=== PATIENT | female | born 1995 | race Caucasian/White ===

== ENCOUNTER 2019-04-25 16:14 | Emergency (ER) | payer BC ==
--- NOTE | 2019-04-25 17:32 | ER Document Report ---
ED Medical Screen (RME) - General Chief Complaint: OB Problem (<20wks) Stated Complaint: VAGINAL BLEEDING Time Seen by Provider: 04/25/19 17:31 Mode of Arrival: Ambulatory Information source: Patient Notes: Patient is a 23-year-old female who presents to the ER today approximately 12 weeks for vaginal bleeding that started about 1 PM today. Patient states she has passed 2 small clots, less than the size of a quarter. She states her last ended in miscarriage at about 5 weeks. She admits to lower abdominal cramping. Patient knows her blood type, O+. - Related Data Allergies/Adverse Reactions: No Known Allergies Allergy (Verified 04/25/19 16:15) Past Medical History - General Information source: Patient Review of Systems - Review of Systems Female Genitourinary: See HPI Physical Exam - Vital signs Vitals: Temp Pulse Resp BP Pulse Ox 97.8 F 88 12 127/79 H 99 04/25/19 16:18 04/25/19 16:18 04/25/19 16:18 04/25/19 16:18 04/25/19 16:18 - Notes Notes: PHYSICAL EXAMINATION: GENERAL: Well-appearing and in no acute distress. ABDOMEN: Soft, no tenderness. No guarding, no rebound Course - Vital Signs Vital signs: Temp Pulse Resp BP Pulse Ox 97.8 F 88 12 127/79 H 99 04/25/19 16:18 04/25/19 16:18 04/25/19 16:18 04/25/19 16:18 04/25/19 16:18
--- NOTE | 2019-04-25 18:29 | RADIOLOGY REPORT (SQ) ---
EXAM DESCRIPTION: U/S VA2AISG TRNABD 1GES W/ODOP COMPLETED DATE/TIME: 04/25/2019 6:13 pm REASON FOR STUDY: 12 weeks preg vag bleeding, clots COMPARISON: None. TECHNIQUE: Transabdominal static and realtime grayscale images acquired of the pelvis. Additional se lected spectral and color Doppler images recorded. All images stored on PACs. bHCG: Not applicable. CLINICAL DATES: LMP 01/30/2019. 12 weeks 1 day. LIMITATIONS: None. FINDINGS: FETUS: Single Living intrauterine . ULTRASOUND EGA: 11 weeks 5 days. ULTRASOUND MARTHA: 11/09/2019 EFW: Not applicable less than 20 weeks. CRL: 5 cm. FHR: 165 beats per minute. SURVEY: Too early to assess. AMNIOTIC FLUID: Adequate amount. PLACENTA: Not yet developed due to early gestation. SUBCHORIONIC BLEED: No SIZE OF BLEED: Not applicable. UTERUS: No masses. No anomalies. CERVICAL LENGTH: 2.3 cm. Closed. RIGHT ADNEXA: Normal ovary with normal vascular flow. 2.4 x 1.6 x 1.1 cm. No adnexal free fluid. No adnexal masses. LEFT ADNEXA: Normal ovary with normal vascular flow. 3.1 x 2.4 x 2.8 cm. 1.9 cm corpus luteum. No adnexal free fluid. No adnexal masses. FREE FLUID: None. OTHER: No other significant finding. IMPRESSION: LIVING INTRAUTERINE . EGA 11 weeks 5 days. Trimester of : First trimester - 0 to 13 weeks. TECHNICAL DOCUMENTATION: JOB ID: [id number] [email or web address]- All Rights Reserved rev Reading location - IP/workstation name: [email or web address]
[2019-04-25 18:49] LABS: ABSOLUTE BASOPHILS # (AUTO) 0.1 10^3/uL (0.0-0.2); ABSOLUTE EOSINOPHILS # (AUTO) 0.1 10^3/uL (0.0-0.6); ABSOLUTE LYMPHOCYTES (AUTO) 2.1 10^3/uL (0.5-4.7); ABSOLUTE MONOCYTES (AUTO) 0.8 10^3/uL (0.1-1.4); ABSOLUTE NEUT (AUTO) 10.9 10^3/uL (1.7-8.2); BASOPHILS % (AUTO) 0.4 % (0-2); EOSINOPHILS % (AUTO) 1.1 % (0-6); HEMATOCRIT 42.7 % (36.0-47.0); HEMOGLOBIN 14.2 g/dL (12.0-15.5); MEAN CORPUSCULAR HEMOGLOBIN 28.8 pg (27.0-33.4); MEAN CORPUSCULAR HGB CONC 33.2 g/dL (32.0-36.0); MEAN CORPUSCULAR VOLUME 87 fl (80-97); MONOCYTES % (AUTO) 5.9 % (3-13); PLATELET COUNT 263 10^3/uL (150-450); RED BLOOD COUNT 4.91 10^6/uL (3.72-5.28); RED CELL DISTRIBUTION WIDTH 13.7 % (11.5-14.0); SEGMENTED NEUTROPHILS % (AUTO) 77.6 % (42-78); TOTAL CELLS COUNTED % (AUTO) 100 %
[2019-04-25 18:58] LABS: ANION GAP 12 (5-19); BLOOD UREA NITROGEN 8 mg/dL (7-20); CALCIUM 9.8 mg/dL (8.4-10.2); CARBON DIOXIDE 24 mmol/L (22-30); CHLORIDE 100 mmol/L (98-107); GLUCOSE 76 mg/dL (75-110); POTASSIUM 3.9 mmol/L (3.6-5.0)
--- NOTE | 2019-04-25 20:09 | ER Document Report ---
ED General - General Chief Complaint: OB Problem (<20wks) Stated Complaint: VAGINAL BLEEDING Time Seen by Provider: 04/25/19 17:31 Mode of Arrival: Ambulatory - [facility] Notes: 23-year-old female to the emergency department with complaints of vaginal bleeding that began this morning. She states that she is about 12 weeks and had her last menstrual period at the end of January. States that she is being seen by film printer in [place]. States that she has been taking progesterone beginning of this . She states that she has had one prior and it ended in miscarriage at 5-1/2 weeks. She states that when she began to bleed she saw heavy red bleeding with clots. She states that she also developed some pelvic cramping. She denies any urinary complaints. Denies any urinary discharge. She is and monogamous. She denies any concerns for STDs. She denies any fevers. She does admit some nausea and slight vomiting during this but none recently. - Related Data Allergies/Adverse Reactions: No Known Allergies Allergy (Verified 04/25/19 16:15) Past Medical History - General Information source: Patient - Social History Smoking Status: Never Smoker Chew tobacco use (# tins/day): No Frequency of alcohol use: None Drug Abuse: None Family History: Reviewed & Not Pertinent Patient has suicidal ideation: No Patient has homicidal ideation: No Renal/ Medical History: Denies: Hx Peritoneal Dialysis Review of Systems - Review of Systems Constitutional: denies: Chills, Fever EENT: No symptoms reported Cardiovascular: denies: Chest pain, Palpitations, Syncope, Dizziness, Lightheaded Respiratory: denies: Cough, Short of breath Gastrointestinal: Abdominal pain - pelvic pain, Nausea. denies: Diarrhea, Vomiting Genitourinary: denies: Burning, Dysuria, Discharge, Frequency, Flank pain, Hematuria, Incontinence Female Genitourinary: , Vaginal bleeding Musculoskeletal: No symptoms reported Skin: No symptoms reported Neurological/Psychological: No symptoms reported -: Yes All other systems reviewed and negative Physical Exam - Vital signs Vitals: Temp Pulse Resp BP Pulse Ox 97.8 F 88 12 127/79 H 99 04/25/19 16:18 04/25/19 16:18 04/25/19 16:18 04/25/19 16:18 04/25/19 16:18 - General General appearance: Appears well, Alert - HEENT Head: Normocephalic, Atraumatic Eyes: Normal Pupils: PERRL - Respiratory Respiratory status: No respiratory distress Chest status: Nontender Breath sounds: Normal Chest palpation: Normal - Cardiovascular Rhythm: Regular Heart sounds: Normal auscultation Murmur: No - Abdominal Inspection: Normal Distension: No distension Bowel sounds: Normal Tenderness: Nontender. No: McBurney's point, Downs's sign, Guarding, Rebound Organomegaly: No organomegaly - Genitourinary External exam: Normal Speculum exam: Cervix closed Vaginal bleeding: Mild Bimanuel exam: No: Cervical motion tender, Bladder/Urethral tender, Adnexal mass, Adnexal tenderness Notes: pelvic and bimanual exam performed with RN chaperoning. There was mild vaginal bleeding but cervix is closed. There is no evidence of products of conception emanating from the cervix. There is no clots. There is no cervical motion tenderness, adnexal mass, adnexal tenderness. - Back Back: Normal, Nontender - Neurological Neuro grossly intact: Yes Cognition: Normal Orientation: AAOx4 [place] Coma Scale Eye Opening: Spontaneous Janell Coma Scale Verbal: Oriented Janell Coma Scale Motor: Obeys Commands Janell Coma Scale Total: 15 Speech: Normal Motor strength normal: LUE, RUE, LLE, RLE Sensory: Normal - Psychological Associated symptoms: Normal affect, Normal mood - Skin Skin Temperature: Warm Skin Moisture: Dry Skin Color: Normal Course - Re-evaluation Re-evalutation: Impression: Threatened miscarriage in early . Noted ultrasound with confirmed IUP with heart rate of 165. Pelvic exam was performed and there was vaginal bleeding but mild in nature. The cervix is closed. There is no evidenc e of products of conception in the vaginal vault. Patient had reassuring H&H. She is oh positive for her blood type. Noted slight leukocytosis which suspect is inflammatory in nature. She has no fever. She has no urinary tract infection. She is not tender on her abdomen. She has no other findings to suggest infection. She has an appointment with her film printer tomorrow. And I have encouraged her to follow-up with her without fail. I have encouraged pelvic rest. Encouraged to return if worsening pain, extreme bleeding, passing out, chest pain, shortness of breath, fevers. Explained to patient and her that she will need close follow-up this week with [employer] to include trending beta quant levels and also likely repeat ultrasound 1 week. They agree with the plan. Encouraged to continue vitamins. - Vital Signs Vital signs: Temp Pulse Resp BP Pulse Ox 98.4 F 72 18 110/72 98 04/25/19 21:40 04/25/19 21:40 04/25/19 21:40 04/25/19 21:40 04/25/19 21:40 - Laboratory Result Diagrams: 04/25/19 18:15 04/25/19 18:15 Laboratory results interpreted by me: 04/25/19 04/25/19 04/25/19 18:15 18:15 20:30 WBC 14.0 H Absolute Neutrophils 10.9 H Sodium 135.9 L Beta HCG, Quant 13896.00 H Urine Ketones 20 H Urine Blood MODERATE H Discharge - Discharge Clinical Impression: Threatened miscarriage, Vaginal bleeding Condition: Stable Disposition: HOME, SELF-CARE Instructions: Threatened Miscarriage ([facility]) Additional Instructions: FOLLOW UP WITH YOUR CLINICAL TRIALS ASSISTANT IN [place] TOMORROW WITHOUT FAIL AND SCHEDULED. PELVIC REST: NO DOUCHING, NO SEX, NO TAMPON USE. CONTINUE PRENATALS. RETURN IF PASSING OUT, CHEST PAIN, HEAVY AND EXCESSIVE VAGINAL BLEEDING, FEVERS.
[2019-04-25 21:25] LABS: APPEARANCE,URINE CLEAR; BILIRUBIN,URINE NEGATIVE (NEGATIVE); COLOR,URINE YELLOW; GLUCOSE, URINE NEGATIVE (NEGATIVE); KETONES,URINE 20 mg/dL (NEGATIVE); LEUKOCYTE ESTERASE,URINE NEGATIVE (NEGATIVE); NITRITE,URINE NEGATIVE (NEGATIVE); PROTEIN,URINE NEGATIVE (NEGATIVE); URINE SPECIFIC GRAVITY 1.011; UROBILINOGEN,URINE NEGATIVE mg/dL (<2.0)
[2019-04-25 21:45] VITALS: BP 110/72
== END 2019-04-25 21:45 | disposition home or self-care (01) ==
LOC: ER 16:14
DX: O20.0 Threatened abortion (principal); O26.899 Other specified pregnancy related conditions, unspecified trimester; R10.2 Pelvic and perineal pain; O21.9 Vomiting of pregnancy, unspecified; O99.119 Other diseases of the blood and blood-forming organs and certain disorders involving the immune mechanism complicating pregnancy, unspecified trimester; D72.829 Elevated white blood cell count, unspecified; Z3A.00 Weeks of gestation of pregnancy not specified
CPT/HCPCS: 36415; 76801; 80048; 81001; 84702; 85025; 99284